=== PATIENT | male | born 1965 | race Caucasian/White ===

== ENCOUNTER 2024-01-20 23:45 | Emergency (ER) | payer OTHER ==
[2024-01-21] MEDS ORDERED: Lidocaine 1% w/Epinephrine 1:100K 20 ML VIAL ONE (00:29)
== END 2024-01-21 02:00 | disposition home or self-care (01) ==
LOC: MADERS 23:45
DX: S01.511A Laceration without foreign body of lip, initial encounter (principal); F10.129 Alcohol abuse with intoxication, unspecified; I10 Essential (primary) hypertension; W18.30XA Fall on same level, unspecified, initial encounter; Y90.9 Presence of alcohol in blood, level not specified
CPT/HCPCS: 12014; 99283